=== PATIENT | male | born 1995 | race African-American/Black ===

== ENCOUNTER 2021-08-14 21:38 | Inpatient (IN) | payer OTHER ==
[2021-08-14 21:59] VITALS: BMI 25.0
[2021-08-14] MEDS ORDERED: BISMUTH SUBSALICYLATE 524 MG/30 ML PO PRN (22:35)
[2021-08-14] MEDS ORDERED: MAGNESIUM CITRATE 300 ML BOTTLE PO PRN (22:35)
[2021-08-14] MEDS ORDERED: MAGNESIUM HYDROX 2400MG/30ML ORAL SUSPENSION 30 ML CUP PO PRN (22:35)
[2021-08-14] MEDS ORDERED: IBUPROFEN 400 MG TABLET (FP) PO PRN (22:35)
[2021-08-14] MEDS ORDERED: ACETAMINOPHEN 325 MG TABLET (FP) PO PRN ×2 (22:35)
[2021-08-14] MEDS ORDERED: DICYCLOMINE HCL 10 MG CAPSULE PO PRN (22:35)
[2021-08-14] MEDS ORDERED: MAG HYDROX/AL HYDROX/SIMETH 30 ML UNIT-DOSE CUP PO PRN (22:35)
[2021-08-14] MEDS ORDERED: LOPERAMIDE HCL 2 MG CAPSULE PO PRN (22:35)
[2021-08-14] MEDS ORDERED: ONDANSETRON *ODT* 4 MG TABLET SL PRN (22:35)
[2021-08-14] MEDS ORDERED: BENZOCAINE/MENTHOL (CHLORASEPTIC ) LOZENGE MM PRN (22:35)
[2021-08-15] MEDS: METHOCARBAMOL 500 MG TABLET PO PRN ×2 (10:35→17:15)
[2021-08-15] MEDS: PRENATAL VITAMINS W/ FOLIC ACID TABLET (FP) PO SCH (10:36)
[2021-08-15 10:59] LABS: CALCIUM 9.3 mg/dL (8.5-10.1)
[2021-08-15 11:00] LABS: ALBUMIN 3.5 g/dl (3.4-5.0); BLOOD UREA NITROGEN 22.7 mg/dL (7-18)
[2021-08-15 11:05] LABS: BILIRUBIN,TOTAL 0.7 mg/dL (0.2-1); TOT PROT 6.8 g/dl (6.4-8.2)
[2021-08-15 11:06] LABS: HEMATOCRIT 37.7 % (35.4-49); HEMOGLOBIN 12.4 GM/dL (11.7-16.9); MCH 27.2 pg (25.7-33.7); MCHC 32.8 g/dl (32.0-35.9); MEAN CELL VOLUME 82.9 fl (80-96); MEAN PLT VOLUME 7.1 fl (7.5-11.1); PLATELET COUNT 227 10^3/uL (134-434); RBC 4.54 M/mm3 (4.00-5.60); RDW 14.3 % (11.9-15.9); WHITE BLOOD COUNT 5.1 K/mm3 (4.0-10.0)
[2021-08-15] MEDS: DEXTROAMPHETAMINE/AMPHETAMINE 10 MG CAP.ER.24H PO SCH (13:14)
[2021-08-15] MEDS ORDERED: THIAMINE HCL 100 MG TABLET (FP) PO SCH (22:00)
[2021-08-15] MEDS ORDERED: QUEtiapine FUMARATE 100 MG TABLET (FP) PO SCH (22:00)
[2021-08-15] MEDS ORDERED: QUEtiapine FUMARATE 25 MG TABLET PO SCH (22:00)
[2021-08-15] MEDS ORDERED: lamoTRIgine 25 MG TABLET PO SCH ×2 (22:00)
[2021-08-15] MEDS ORDERED: MELATONIN 5 MG TABLETS PO SCH (22:00)
[2021-08-15] MEDS: lamoTRIgine 25 MG TABLET PO SCH (22:16)
[2021-08-15] MEDS: DIVALPROEX SODIUM 500 MG TABLET E.C. PO SCH (22:17)
[2021-08-16] MEDS: METHOCARBAMOL 500 MG TABLET PO PRN ×2 (00:38→07:34)
[2021-08-16] MEDS: DEXTROAMPHETAMINE/AMPHETAMINE 10 MG CAP.ER.24H PO SCH (09:34)
[2021-08-16] MEDS: PRENATAL VITAMINS W/ FOLIC ACID TABLET (FP) PO SCH (09:34)
[2021-08-16] MEDS: DIVALPROEX SODIUM 500 MG TABLET E.C. PO SCH (09:34)
[2021-08-16] MEDS: lamoTRIgine 25 MG TABLET PO SCH (09:35)
[2021-08-16 13:12] VITALS: BP 160/104; PULSE 110; TEMP 98
[2021-08-16 16:08] LABS: SARS-CoV-2 NAA Not Detected (Not Detected)
== END 2021-08-16 01:50 | disposition other institution (70) | DRG 775 ==
LOC: YASAS 21:38 → Y6N 22:57 → UNDOADMIN 22:57 → UNDODISIN 08-16 01:50
PROVIDERS: ADMIT Allergy & Immunology; ATTEND Surgery
PROC: HZ2ZZZZ Detoxification Services for Substance Abuse Treatment (ICD-10-PCS; principal; 2021-08-14)
DX: F10.230 Alcohol dependence with withdrawal, uncomplicated (principal); F31.75 Bipolar disorder, in partial remission, most recent episode depressed; F19.282 Other psychoactive substance dependence with psychoactive substance-induced sleep disorder; F19.24 Other psychoactive substance dependence with psychoactive substance-induced mood disorder; F90.9 Attention-deficit hyperactivity disorder, unspecified type
CPT/HCPCS: 36415; 80053; 80164; 85027; 86780; 87811; 93005; 93010; C9803-CS; U0003; U0005

== ENCOUNTER 2021-08-16 12:51 | Inpatient (IN) | payer OTHER ==
[2021-08-16] MEDS ORDERED: MAGNESIUM HYDROX 2400MG/30ML ORAL SUSPENSION 30 ML CUP PO PRN (15:01)
[2021-08-16] MEDS ORDERED: P-EPHED 60MG/TRIPROLIDI 2.5MG TABLET PO PRN (15:01)
[2021-08-16] MEDS ORDERED: LOPERAMIDE HCL 2 MG CAPSULE PO PRN (15:01)
[2021-08-16] MEDS ORDERED: IBUPROFEN 400 MG TABLET (FP) PO PRN (15:01)
[2021-08-16] MEDS ORDERED: MAG HYDROX/AL HYDROX/SIMETH 30 ML UNIT-DOSE CUP PO PRN (15:01)
[2021-08-16] MEDS ORDERED: ACETAMINOPHEN 325 MG TABLET (FP) PO PRN (15:01)
[2021-08-16] MEDS ORDERED: MAGNESIUM CITRATE 300 ML BOTTLE PO PRN (15:01)
[2021-08-16] MEDS ORDERED: guaiFENesin 200 MG/10 ML 10 ML UNIT-DOSE CUPS PO PRN (15:01)
[2021-08-16] MEDS ORDERED: BENZOCAINE/MENTHOL (CHLORASEPTIC ) LOZENGE MM PRN (15:01)
[2021-08-16] MEDS: THIAMINE HCL 100 MG TABLET (FP) PO SCH (21:16)
[2021-08-16] MEDS: lamoTRIgine 25 MG TABLET PO SCH (21:16)
[2021-08-16] MEDS: DIVALPROEX SODIUM 500 MG TABLET E.C. PO SCH (21:16)
[2021-08-16] MEDS: MELATONIN 5 MG TABLETS PO SCH (21:16)
[2021-08-16] MEDS ORDERED: QUEtiapine FUMARATE 50 MG TABLET PO SCH (22:00)
[2021-08-16] MEDS: hydrOXYzine PAMOATE 25 MG CAPSULE (FP) PO PRN (23:31)
[2021-08-17] MEDS: DIVALPROEX SODIUM 500 MG TABLET E.C. PO SCH ×2 (09:22→21:23)
[2021-08-17] MEDS: PRENATAL VITAMINS W/ FOLIC ACID TABLET (FP) PO SCH (09:22)
[2021-08-17] MEDS: lamoTRIgine 25 MG TABLET PO SCH ×2 (09:22→21:23)
[2021-08-17] MEDS: DEXTROAMPHETAMINE/AMPHETAMINE 10 MG CAP.ER.24H PO SCH (11:18)
[2021-08-17 12:57] LABS: HIV INTERPRETATION NEGATIVE (NEGATIVE)
[2021-08-17] MEDS: MELATONIN 5 MG TABLETS PO SCH (21:22)
[2021-08-17] MEDS: THIAMINE HCL 100 MG TABLET (FP) PO SCH (21:23)
[2021-08-17] MEDS: QUEtiapine FUMARATE 100 MG TABLET (FP) PO SCH (21:23)
[2021-08-18] MEDS: DEXTROAMPHETAMINE/AMPHETAMINE 10 MG CAP.ER.24H PO SCH (09:04)
[2021-08-18] MEDS: DIVALPROEX SODIUM 500 MG TABLET E.C. PO SCH ×2 (09:05→21:56)
[2021-08-18] MEDS: lamoTRIgine 25 MG TABLET PO SCH ×2 (09:05→21:21)
[2021-08-18] MEDS: PRENATAL VITAMINS W/ FOLIC ACID TABLET (FP) PO SCH (09:05)
[2021-08-18] MEDS: THIAMINE HCL 100 MG TABLET (FP) PO SCH (21:21)
[2021-08-18] MEDS: MELATONIN 5 MG TABLETS PO SCH (21:21)
[2021-08-18] MEDS: hydrOXYzine PAMOATE 25 MG CAPSULE (FP) PO PRN (21:21)
[2021-08-18] MEDS: QUEtiapine FUMARATE 100 MG TABLET (FP) PO SCH (21:21)
[2021-08-19] MEDS: DEXTROAMPHETAMINE/AMPHETAMINE 10 MG CAP.ER.24H PO SCH (07:22)
[2021-08-19] MEDS: DIVALPROEX SODIUM 500 MG TABLET E.C. PO SCH ×2 (07:22→21:08)
[2021-08-19] MEDS: PRENATAL VITAMINS W/ FOLIC ACID TABLET (FP) PO SCH (07:23)
[2021-08-19] MEDS: lamoTRIgine 25 MG TABLET PO SCH ×2 (07:23→21:08)
[2021-08-19] MEDS: THIAMINE HCL 100 MG TABLET (FP) PO SCH (21:08)
[2021-08-19] MEDS: QUEtiapine FUMARATE 100 MG TABLET (FP) PO SCH (21:08)
[2021-08-19] MEDS: MELATONIN 5 MG TABLETS PO SCH (21:08)
[2021-08-20] MEDS: lamoTRIgine 25 MG TABLET PO SCH ×2 (07:07→21:34)
[2021-08-20] MEDS: DIVALPROEX SODIUM 500 MG TABLET E.C. PO SCH ×2 (07:07→21:34)
[2021-08-20] MEDS: DEXTROAMPHETAMINE/AMPHETAMINE 10 MG CAP.ER.24H PO SCH (07:07)
[2021-08-20] MEDS: PRENATAL VITAMINS W/ FOLIC ACID TABLET (FP) PO SCH (07:07)
[2021-08-20] MEDS: QUEtiapine FUMARATE 100 MG TABLET (FP) PO SCH (21:34)
[2021-08-20] MEDS: MELATONIN 5 MG TABLETS PO SCH (21:34)
[2021-08-20] MEDS: THIAMINE HCL 100 MG TABLET (FP) PO SCH (21:34)
[2021-08-21] MEDS: DEXTROAMPHETAMINE/AMPHETAMINE 10 MG CAP.ER.24H PO SCH (07:13)
[2021-08-21] MEDS: DIVALPROEX SODIUM 500 MG TABLET E.C. PO SCH ×2 (07:13→21:03)
[2021-08-21] MEDS: lamoTRIgine 25 MG TABLET PO SCH ×2 (07:13→21:03)
[2021-08-21] MEDS: PRENATAL VITAMINS W/ FOLIC ACID TABLET (FP) PO SCH (07:13)
[2021-08-21] MEDS: THIAMINE HCL 100 MG TABLET (FP) PO SCH (21:03)
[2021-08-21] MEDS: MELATONIN 5 MG TABLETS PO SCH (21:03)
[2021-08-21] MEDS: QUEtiapine FUMARATE 100 MG TABLET (FP) PO SCH (21:03)
[2021-08-22] MEDS: DEXTROAMPHETAMINE/AMPHETAMINE 10 MG CAP.ER.24H PO SCH (07:01)
[2021-08-22] MEDS: DIVALPROEX SODIUM 500 MG TABLET E.C. PO SCH ×2 (07:01→21:02)
[2021-08-22] MEDS: PRENATAL VITAMINS W/ FOLIC ACID TABLET (FP) PO SCH (07:01)
[2021-08-22] MEDS: lamoTRIgine 25 MG TABLET PO SCH ×2 (07:01→21:02)
[2021-08-22] MEDS: MELATONIN 5 MG TABLETS PO SCH (21:02)
[2021-08-22] MEDS: THIAMINE HCL 100 MG TABLET (FP) PO SCH (21:02)
[2021-08-22] MEDS: QUEtiapine FUMARATE 100 MG TABLET (FP) PO SCH (21:02)
[2021-08-23] MEDS: DEXTROAMPHETAMINE/AMPHETAMINE 10 MG CAP.ER.24H PO SCH (07:00)
[2021-08-23] MEDS: DIVALPROEX SODIUM 500 MG TABLET E.C. PO SCH ×2 (07:00→21:33)
[2021-08-23] MEDS: lamoTRIgine 25 MG TABLET PO SCH ×2 (07:00→21:33)
[2021-08-23] MEDS: PRENATAL VITAMINS W/ FOLIC ACID TABLET (FP) PO SCH (07:01)
[2021-08-23] MEDS ORDERED: MELATONIN 5 MG TABLETS PO SCH (15:37)
[2021-08-23] MEDS: THIAMINE HCL 100 MG TABLET (FP) PO SCH (21:34)
[2021-08-23] MEDS: QUEtiapine FUMARATE 100 MG TABLET (FP) PO SCH (21:34)
[2021-08-24] MEDS: PRENATAL VITAMINS W/ FOLIC ACID TABLET (FP) PO SCH (07:18)
[2021-08-24] MEDS: DEXTROAMPHETAMINE/AMPHETAMINE 10 MG CAP.ER.24H PO SCH (07:18)
[2021-08-24] MEDS: lamoTRIgine 25 MG TABLET PO SCH ×2 (07:18→21:18)
[2021-08-24] MEDS: DIVALPROEX SODIUM 500 MG TABLET E.C. PO SCH ×2 (07:18→21:18)
[2021-08-24] MEDS: SUVOREXANT 10 MG TABLET PO PRN (21:18)
[2021-08-24] MEDS: THIAMINE HCL 100 MG TABLET (FP) PO SCH (21:18)
[2021-08-24] MEDS: QUEtiapine FUMARATE 100 MG TABLET (FP) PO SCH (21:18)
[2021-08-25] MEDS: DIVALPROEX SODIUM 500 MG TABLET E.C. PO SCH ×2 (07:19→21:12)
[2021-08-25] MEDS: DEXTROAMPHETAMINE/AMPHETAMINE 10 MG CAP.ER.24H PO SCH (07:19)
[2021-08-25] MEDS: PRENATAL VITAMINS W/ FOLIC ACID TABLET (FP) PO SCH (07:19)
[2021-08-25] MEDS: lamoTRIgine 25 MG TABLET PO SCH ×2 (07:19→21:13)
[2021-08-25] MEDS: MELATONIN 5 MG TABLETS PO SCH (21:12)
[2021-08-25] MEDS: QUEtiapine FUMARATE 100 MG TABLET (FP) PO SCH (21:12)
[2021-08-25] MEDS: THIAMINE HCL 100 MG TABLET (FP) PO SCH (21:12)
[2021-08-25] MEDS: SUVOREXANT 10 MG TABLET PO PRN (21:13)
[2021-08-26] MEDS: PRENATAL VITAMINS W/ FOLIC ACID TABLET (FP) PO SCH (07:06)
[2021-08-26] MEDS: lamoTRIgine 25 MG TABLET PO SCH ×2 (07:17→21:33)
[2021-08-26] MEDS: DIVALPROEX SODIUM 500 MG TABLET E.C. PO SCH ×2 (07:17→21:33)
[2021-08-26] MEDS: DEXTROAMPHETAMINE/AMPHETAMINE 10 MG CAP.ER.24H PO SCH (07:17)
[2021-08-26] MEDS: QUEtiapine FUMARATE 100 MG TABLET (FP) PO SCH (21:33)
[2021-08-26] MEDS: THIAMINE HCL 100 MG TABLET (FP) PO SCH (21:33)
[2021-08-26] MEDS ORDERED: SUVOREXANT 10 MG TABLET PO PRN (22:00)
[2021-08-27] MEDS: DIVALPROEX SODIUM 500 MG TABLET E.C. PO SCH ×2 (07:46→21:28)
[2021-08-27] MEDS: lamoTRIgine 25 MG TABLET PO SCH ×2 (07:46→21:28)
[2021-08-27] MEDS: DEXTROAMPHETAMINE/AMPHETAMINE 10 MG CAP.ER.24H PO SCH (07:46)
[2021-08-27] MEDS: PRENATAL VITAMINS W/ FOLIC ACID TABLET (FP) PO SCH (07:48)
[2021-08-27] MEDS: QUEtiapine FUMARATE 100 MG TABLET (FP) PO SCH (21:28)
[2021-08-27] MEDS: THIAMINE HCL 100 MG TABLET (FP) PO SCH (21:28)
[2021-08-27] MEDS: SUVOREXANT 15 MG TABLET PO PRN (21:29)
[2021-08-28] MEDS: DIVALPROEX SODIUM 500 MG TABLET E.C. PO SCH ×2 (08:13→21:15)
[2021-08-28] MEDS: DEXTROAMPHETAMINE/AMPHETAMINE 10 MG CAP.ER.24H PO SCH (08:13)
[2021-08-28] MEDS: lamoTRIgine 25 MG TABLET PO SCH ×2 (08:13→21:15)
[2021-08-28] MEDS: PRENATAL VITAMINS W/ FOLIC ACID TABLET (FP) PO SCH (08:14)
[2021-08-28] MEDS: THIAMINE HCL 100 MG TABLET (FP) PO SCH (21:15)
[2021-08-28] MEDS: QUEtiapine FUMARATE 100 MG TABLET (FP) PO SCH (21:15)
[2021-08-28] MEDS: SUVOREXANT 15 MG TABLET PO PRN (21:16)
[2021-08-29] MEDS: DIVALPROEX SODIUM 500 MG TABLET E.C. PO SCH ×2 (07:05→21:12)
[2021-08-29] MEDS: DEXTROAMPHETAMINE/AMPHETAMINE 10 MG CAP.ER.24H PO SCH (07:05)
[2021-08-29] MEDS: lamoTRIgine 25 MG TABLET PO SCH ×2 (07:06→21:12)
[2021-08-29] MEDS: PRENATAL VITAMINS W/ FOLIC ACID TABLET (FP) PO SCH (07:06)
[2021-08-29] MEDS: SUVOREXANT 15 MG TABLET PO PRN (21:12)
[2021-08-29] MEDS: QUEtiapine FUMARATE 100 MG TABLET (FP) PO SCH (21:12)
[2021-08-29] MEDS: THIAMINE HCL 100 MG TABLET (FP) PO SCH (21:12)
[2021-08-30] MEDS: DEXTROAMPHETAMINE/AMPHETAMINE 10 MG CAP.ER.24H PO SCH (07:57)
[2021-08-30] MEDS: DIVALPROEX SODIUM 500 MG TABLET E.C. PO SCH ×2 (07:57→21:01)
[2021-08-30] MEDS: lamoTRIgine 25 MG TABLET PO SCH ×2 (07:57→21:01)
[2021-08-30] MEDS: PRENATAL VITAMINS W/ FOLIC ACID TABLET (FP) PO SCH (07:57)
[2021-08-30] MEDS: THIAMINE HCL 100 MG TABLET (FP) PO SCH (21:00)
[2021-08-30] MEDS: SUVOREXANT 15 MG TABLET PO PRN (21:01)
[2021-08-30] MEDS: QUEtiapine FUMARATE 100 MG TABLET (FP) PO SCH (21:01)
[2021-08-31] MEDS: lamoTRIgine 25 MG TABLET PO SCH ×2 (07:19→21:19)
[2021-08-31] MEDS: DIVALPROEX SODIUM 500 MG TABLET E.C. PO SCH ×2 (07:19→21:19)
[2021-08-31] MEDS: DEXTROAMPHETAMINE/AMPHETAMINE 10 MG CAP.ER.24H PO SCH (07:19)
[2021-08-31] MEDS: PRENATAL VITAMINS W/ FOLIC ACID TABLET (FP) PO SCH (07:20)
[2021-08-31] MEDS: QUEtiapine FUMARATE 100 MG TABLET (FP) PO SCH (21:19)
[2021-08-31] MEDS: THIAMINE HCL 100 MG TABLET (FP) PO SCH (21:19)
[2021-08-31] MEDS: SUVOREXANT 15 MG TABLET PO PRN (21:20)
[2021-09-01] MEDS: DIVALPROEX SODIUM 500 MG TABLET E.C. PO SCH ×2 (07:38→21:26)
[2021-09-01] MEDS: lamoTRIgine 25 MG TABLET PO SCH ×2 (07:38→21:26)
[2021-09-01] MEDS: DEXTROAMPHETAMINE/AMPHETAMINE 10 MG CAP.ER.24H PO SCH ×2 (07:38→17:09)
[2021-09-01] MEDS: PRENATAL VITAMINS W/ FOLIC ACID TABLET (FP) PO SCH (07:38)
[2021-09-01] MEDS: QUEtiapine FUMARATE 100 MG TABLET (FP) PO SCH (21:26)
[2021-09-01] MEDS: THIAMINE HCL 100 MG TABLET (FP) PO SCH (21:27)
[2021-09-02] MEDS: PRENATAL VITAMINS W/ FOLIC ACID TABLET (FP) PO SCH (07:01)
[2021-09-02] MEDS: DEXTROAMPHETAMINE/AMPHETAMINE 10 MG CAP.ER.24H PO SCH ×2 (07:01→17:02)
[2021-09-02] MEDS: DIVALPROEX SODIUM 500 MG TABLET E.C. PO SCH ×2 (07:01→21:11)
[2021-09-02] MEDS: lamoTRIgine 25 MG TABLET PO SCH ×2 (07:01→21:11)
[2021-09-02] MEDS: THIAMINE HCL 100 MG TABLET (FP) PO SCH (21:11)
[2021-09-02] MEDS: QUEtiapine FUMARATE 100 MG TABLET (FP) PO SCH (21:11)
[2021-09-02] MEDS: SUVOREXANT 15 MG TABLET PO PRN (21:12)
[2021-09-03] MEDS: DEXTROAMPHETAMINE/AMPHETAMINE 10 MG CAP.ER.24H PO SCH ×2 (07:08→17:05)
[2021-09-03] MEDS: PRENATAL VITAMINS W/ FOLIC ACID TABLET (FP) PO SCH (07:08)
[2021-09-03] MEDS: DIVALPROEX SODIUM 500 MG TABLET E.C. PO SCH ×2 (07:08→21:05)
[2021-09-03] MEDS: lamoTRIgine 25 MG TABLET PO SCH ×2 (07:08→21:05)
[2021-09-03] MEDS: QUEtiapine FUMARATE 100 MG TABLET (FP) PO SCH (21:04)
[2021-09-03] MEDS: SUVOREXANT 15 MG TABLET PO PRN (21:04)
[2021-09-03] MEDS: THIAMINE HCL 100 MG TABLET (FP) PO SCH (21:04)
[2021-09-04] MEDS: lamoTRIgine 25 MG TABLET PO SCH ×2 (07:18→21:19)
[2021-09-04] MEDS: DIVALPROEX SODIUM 500 MG TABLET E.C. PO SCH ×2 (07:18→21:19)
[2021-09-04] MEDS: DEXTROAMPHETAMINE/AMPHETAMINE 10 MG CAP.ER.24H PO SCH ×2 (07:18→17:01)
[2021-09-04] MEDS: PRENATAL VITAMINS W/ FOLIC ACID TABLET (FP) PO SCH (07:19)
[2021-09-04] MEDS: QUEtiapine FUMARATE 100 MG TABLET (FP) PO SCH (21:19)
[2021-09-04] MEDS: THIAMINE HCL 100 MG TABLET (FP) PO SCH (21:19)
[2021-09-04] MEDS: SUVOREXANT 15 MG TABLET PO PRN (21:20)
[2021-09-05] MEDS: DEXTROAMPHETAMINE/AMPHETAMINE 10 MG CAP.ER.24H PO SCH ×2 (07:14→17:03)
[2021-09-05] MEDS: lamoTRIgine 25 MG TABLET PO SCH ×2 (07:14→21:25)
[2021-09-05] MEDS: DIVALPROEX SODIUM 500 MG TABLET E.C. PO SCH ×2 (07:14→21:25)
[2021-09-05] MEDS: PRENATAL VITAMINS W/ FOLIC ACID TABLET (FP) PO SCH (07:14)
[2021-09-05] MEDS: QUEtiapine FUMARATE 100 MG TABLET (FP) PO SCH (21:25)
[2021-09-05] MEDS: SUVOREXANT 15 MG TABLET PO PRN (21:25)
[2021-09-05] MEDS: THIAMINE HCL 100 MG TABLET (FP) PO SCH (21:25)
[2021-09-06] MEDS: DEXTROAMPHETAMINE/AMPHETAMINE 10 MG CAP.ER.24H PO SCH ×2 (07:00→17:02)
[2021-09-06] MEDS: PRENATAL VITAMINS W/ FOLIC ACID TABLET (FP) PO SCH (07:01)
[2021-09-06] MEDS: lamoTRIgine 25 MG TABLET PO SCH ×2 (07:01→21:12)
[2021-09-06] MEDS: DIVALPROEX SODIUM 500 MG TABLET E.C. PO SCH ×2 (07:01→21:13)
[2021-09-06] MEDS: THIAMINE HCL 100 MG TABLET (FP) PO SCH (21:12)
[2021-09-06] MEDS: QUEtiapine FUMARATE 100 MG TABLET (FP) PO SCH (21:13)
[2021-09-06] MEDS: SUVOREXANT 15 MG TABLET PO PRN (21:13)
[2021-09-06] MEDS: hydrOXYzine PAMOATE 25 MG CAPSULE (FP) PO PRN (23:42)
[2021-09-07] MEDS: lamoTRIgine 25 MG TABLET PO SCH ×2 (07:25→21:25)
[2021-09-07] MEDS: DIVALPROEX SODIUM 500 MG TABLET E.C. PO SCH ×2 (07:25→21:25)
[2021-09-07] MEDS: PRENATAL VITAMINS W/ FOLIC ACID TABLET (FP) PO SCH (07:26)
[2021-09-07] MEDS: DEXTROAMPHETAMINE/AMPHETAMINE 10 MG CAP.ER.24H PO SCH ×2 (07:26→16:20)
[2021-09-07] MEDS: THIAMINE HCL 100 MG TABLET (FP) PO SCH (21:24)
[2021-09-07] MEDS: QUEtiapine FUMARATE 100 MG TABLET (FP) PO SCH (21:25)
[2021-09-07] MEDS ORDERED: SUVOREXANT 15 MG TABLET PO PRN (22:00)
[2021-09-08] MEDS: DEXTROAMPHETAMINE/AMPHETAMINE 10 MG CAP.ER.24H PO SCH ×2 (07:21→16:03)
[2021-09-08] MEDS: DIVALPROEX SODIUM 500 MG TABLET E.C. PO SCH ×2 (07:21→21:09)
[2021-09-08] MEDS: lamoTRIgine 25 MG TABLET PO SCH ×2 (07:21→21:09)
[2021-09-08] MEDS: PRENATAL VITAMINS W/ FOLIC ACID TABLET (FP) PO SCH (07:21)
[2021-09-08] MEDS: QUEtiapine FUMARATE 100 MG TABLET (FP) PO SCH (21:09)
[2021-09-08] MEDS: hydrOXYzine PAMOATE 25 MG CAPSULE (FP) PO PRN (21:09)
[2021-09-08] MEDS: THIAMINE HCL 100 MG TABLET (FP) PO SCH (21:09)
[2021-09-09] MEDS: lamoTRIgine 25 MG TABLET PO SCH ×2 (07:23→21:10)
[2021-09-09] MEDS: DEXTROAMPHETAMINE/AMPHETAMINE 10 MG CAP.ER.24H PO SCH ×2 (07:23→16:07)
[2021-09-09] MEDS: PRENATAL VITAMINS W/ FOLIC ACID TABLET (FP) PO SCH (07:24)
[2021-09-09] MEDS: DIVALPROEX SODIUM 500 MG TABLET E.C. PO SCH ×2 (08:42→21:10)
[2021-09-09] MEDS: QUEtiapine FUMARATE 100 MG TABLET (FP) PO SCH (21:10)
[2021-09-09] MEDS: THIAMINE HCL 100 MG TABLET (FP) PO SCH (21:10)
[2021-09-09] MEDS: hydrOXYzine PAMOATE 25 MG CAPSULE (FP) PO PRN (21:10)
[2021-09-09] MEDS ORDERED: SUVOREXANT 15 MG TABLET PO PRN (22:00)
[2021-09-10] MEDS: DEXTROAMPHETAMINE/AMPHETAMINE 10 MG CAP.ER.24H PO SCH (07:01)
[2021-09-10] MEDS: DIVALPROEX SODIUM 500 MG TABLET E.C. PO SCH (07:01)
[2021-09-10] MEDS: PRENATAL VITAMINS W/ FOLIC ACID TABLET (FP) PO SCH (07:02)
[2021-09-10] MEDS: lamoTRIgine 25 MG TABLET PO SCH (07:02)
[2021-09-10 07:20] VITALS: BP 126/79; PULSE 76; TEMP 97.3
== END 2021-09-10 08:40 | disposition home or self-care (01) | DRG 772 ==
LOC: YASAS 12:51 → Y3E 12:58
PROVIDERS: ADMIT Allergy & Immunology; ATTEND Psychiatry & Neurology Pain Medicine
PROC: HZ42ZZZ Group Counseling for Substance Abuse Treatment, Cognitive-Behavioral (ICD-10-PCS; principal; 2021-08-16)
DX: F10.20 Alcohol dependence, uncomplicated (principal); F19.282 Other psychoactive substance dependence with psychoactive substance-induced sleep disorder; F19.24 Other psychoactive substance dependence with psychoactive substance-induced mood disorder; F31.9 Bipolar disorder, unspecified; F90.9 Attention-deficit hyperactivity disorder, unspecified type
CPT/HCPCS: 36415; 80164; 87389